=== PATIENT | female | born 1965 | race Caucasian/White ===

== ENCOUNTER 2021-03-06 19:54 | Emergency (ER) | payer SELFPAY ==
[2021-03-06 19:55] VITALS: BP 156/90; PULSE 84; RESP 16; TEMP 36.9; O2SAT 98; BMI 33.3
--- NOTE | 2021-03-06 19:57 | XRR_ITS ---
PROCEDURE INFORMATION: Exam: XR Chest Exam date and time: 03/06/2021 7:57 PM Age: 55 years old Clinical indication: Dyspnea; Additional info: SOB TECHNIQUE: Imaging protocol: XR of the chest. Views: 1 view. Total images: 1 COMPARISON: 1. CR Chest 1 [place] [id number] 10/03/2016 9:04:[address] chest w con* [id number] 10/03/2016 10:32 PM FINDINGS: Lungs: No visible active interstitial or alveolar airspace disease. Pleural spaces: Unremarkable. No pleural effusion. No pneumothorax. Heart/Mediastinum: Unremarkable. No cardiomegaly. Bones/joints: Unremarkable. Other findings: Obesity. XR/XR chest 1V portable [id number] IMPRESSION: Nonacute.
[2021-03-06] MEDS: sodium chloride 0.9% 1,000 ML 999 ML IV ×2 (20:37→21:44)
[2021-03-06] MEDS: ondansetron 2 mg/ML SDV 2 mL 4 MG IVP (20:37)
[2021-03-06 20:49] VITALS: BP 119/83; PULSE 90; RESP 16; O2SAT 99
--- NOTE | 2021-03-06 20:52 | ED_ITS ---
HPI - Weakness General: Chief complaint: Weakness Stated complaint: OVERHEATED Time Seen by Provider: 03/06/21 19:55 Source: patient Mode of arrival: ambulatory Limitations: no limitations History of Present Illness: HPI Narrative: 55-year-old female states that prior to arrival she was had a jehovah's witness function that was outside roughly an hour ago. States she was feeling extremely weak and felt like she got overheated. States she went to her house and laid down and has been extremely weak since then. States having difficulty walking due to her extreme weakness. Denies any headache or chest pain. She did not pass out. She denies any worsening improving factors. She denies any one-sided weakness or vision changes. Associated symptoms: Denies chest pain, chills, dysuria, easy bruising, fever(s), nausea or vomiting Review of Systems Const: Denies: fever(s), chills, body aches or change in appetite Eyes: Denies: blurry vision or eye discomfort ENMT: Denies: throat pain or dental pain Card: Denies: chest pain Resp: Denies: dyspnea GI: Denies: abdominal pain, nausea, vomiting or diarrhea : Denies: dysuria Musc: Denies: neck pain or back pain Skin/Breast: Denies: rash Neuro: Reports: weakness in extremities Psych: Denies: depression Pantera/Lymph: Denies: easy bruising All/Imm: Denies: urticaria Physical Exam Const: COMMON NORMALS: no acute distress, patient oriented x3 and healthy appearing HENMT: COMMON NORMALS: normocephalic and atraumatic HEAD & SCALP: normocephalic and atraumatic Eye: COMMON NORMALS: Equal, round and reactive pupils present and EOMs intact bilaterally PUPIL: Yes Equal, round and reactive pupils present Neck/C-Spine: COMMON NORMALS: full ROM and supple Chest: COMMONS NORMALS: normal inspection of the chest and normal palpation of entire chest wall Resp: COMMON NORMALS: normal respiratory effort, No retractions, No use of accessory muscles and clear to auscultation bilaterally AUSCULTATION: clear to auscultation bilaterally Cardio: COMMON NORMALS: regular rate, regular rhythm and No murmurs present (Cardio) RATE: regular rate RHYTHM: regular rhythm GI: COMMON NORMALS: Normal to inspection, nondistended, normoactive bowel sounds present, Soft to palpation, non-tender and no masses PALPATION: Yes Soft to palpation Extremity: COMMON NORMALS: normal to inspection and full ROM Neuro: COMMON NORMALS: patient oriented x3, moves all extremities and no focal motor deficits Psych: COMMON NORMALS: mental status grossly normal, Normal thought process present and cooperative THOUGHT PROCESS: Normal thought process present Skin: COMMON NORMALS: no rashes or lesions noted and no wounds GENERAL SKIN EXAM: no rashes or lesions noted Course Vital Signs: Vital signs: Vital Signs Temperature 98.4 F 03/06/21 19:55 Pulse Rate 86 03/06/21 22:36 Respiratory Rate 16 03/06/21 22:36 Blood Pressure 130/87 03/06/21 22:36 Pulse Oximetry 95 03/06/21 22:36 MDM - Weakness MDM Narrative: Medical decision making narrative: Patient presents with weakness likely from heat exhaustion. After 2 L here she feels much improved and is ambulating in the halls. She has no signs of stroke and her blood work is normal. Will prescribe her Zofran and she is to drink plenty of fluids at home and avoid the heat. She is to follow-up with her PCP and return if worsening. Lab Data: Labs: Lab Results 03/06/21 03/06/21 03/06/21 Range/Units 20:34 20:34 20:34 WBC 7.1 (4.0-10.0) 10^3/ uL RBC 4.64 (4.1-5.3) 10^6/u L Hgb 13.2 (11.5-15.3) g/dL Hct 41.0 (37.0-47.0) % MCV 88.4 (81-99) fL MCH 28.4 (28.0-34.0) pg MCHC 32.2 (30.0-36.0) g/dL RDW 12.1 (12.1-15.1) % Plt Count 226 (130-400) 10^3/c mm MPV 11.6 H (7.4-10.4) fL Neut % (Auto) 69.4 % Lymph % (Auto) 20.3 % Woodson % (Auto) 8.7 % Eos % (Auto) 0.7 % Baso % (Auto) 0.3 % Neut # (Auto) 4.95 (1.8-7.7) 10^3/u L Lymph # (Auto) 1.5 (0.8-4.8) 10^3/u L Woodson # (Auto) 0.6 (0.2-0.9) 10^3/u L Eos # (Auto) 0.1 (0.0-0.8) 10^3/u L Baso # (Auto) 0.0 (0.0-0.1) 10^3/u L Nucleated RBC % (a uto) 0 % Nucleated RBCs # 0.0 /100WBC Sodium 138 (136-145) mmol/L Potassium 4.2 (3.5-5.1) mmol/L Chloride 102 (98-107) mmol/L Carbon Dioxide 26 (22-29) mmol/L Anion Gap 14.2 (5-19) BUN 13 (6-20) mg/dL Creatinine 0.8 (0.5-0.9) mg/dL GFR Calculation 74.5 L (90-130) mL/min Glucose 100 (65-115) mg/dL Calculated Osmolal ity 286 (285-295) mOsm/k g Calcium 9.2 (8.5-10.5) mg/dL Total Bilirubin 0.3 (0.15-1.2) mg/dL AST 19 (0-32) U/L ALT 13 (0-33) U/L Alkaline Phosphata se 60 (35-105) IU/L Creatine Kinase 117 (26-192) U/L Troponin T Baselin e 6 (0-10) ng/L Total Protein 6.7 (6.6-8.7) g/dL Albumin 4.4 (3.5-5.2) g/dL Globulin 2.3 (1.3-4.6) g/dL EKG Data^: EKG 1: Attestation: I personally reviewed and interpreted this EKG as follows: EKG interpretation date: 03/06/21 EKG interpretation time: 20:44 Interpretation: nsr hr [address] or t wave abnormalities qrs 94 qtc 441 Discharge Plan Discharge Patient Disposition: Home Clinical Impression: Heat exposure Qualifiers: Encounter type: initial encounter Qualified Code(s): T67.9XXA - Effect of heat and light, unspecified, initial encounter Condition: Stable Prescriptions: New ondansetron 4 mg tablet,disintegrating 4 mg PO Q6H PRN (Reason: nausea and vomiting) Qty: 14 RF: 0 Discharge Orders: Discharge ED (Routine); Ordered 03/06/21 Ordered By: Eliceo Wooten Referrals: Fady Alfaro DO [Primary Care Provider] - 1-3 days Discharge Diet: Advance as tolerated Discharge Activity: Resume usual activity Patient Instructions: Heat Exhaustion (ED) Coding Level of Care Code ED Seating And Mobility Technologist for Chg Fwd Exam Comprehensive
[2021-03-06 21:03] LABS: Basophils % 0.3 %; Eosinophils # 0.1 10^3/uL (0.0-0.8); Eosinophils % 0.7 %; Hemoglobin 13.2 g/dL (11.5-15.3); Lymphocytes # 1.5 10^3/uL (0.8-4.8); Lymphocytes % 20.3 %; Mean Corpuscular HGB Conc 32.2 g/dL (30.0-36.0); Mean Corpuscular Hemoglobin 28.4 pg (28.0-34.0); Mean Corpuscular Volume 88.4 fL (81-99); Mean Platelet Volume 11.6 fL (7.4-10.4); Monocytes # 0.6 10^3/uL (0.2-0.9); Monocytes % 8.7 %; Neutrophils # 4.95 10^3/uL (1.8-7.7); Neutrophils % 69.4 %; Nucleated Red Blood Cells % 0 %; Platelet Count 226 10^3/cmm (130-400); Red Blood Count 4.64 10^6/uL (4.1-5.3); Red Cell Distribution Width 12.1 % (12.1-15.1); White Blood Count 7.1 10^3/uL (4.0-10.0)
[2021-03-06 21:24] LABS: Alanine Aminotransferase 13 U/L (0-33); Albumin Level 4.4 g/dL (3.5-5.2); Alkaline Phosphatase 60 IU/L (35-105); Anion Gap 14.2 (5-19); Aspartate Amino Transferase 19 U/L (0-32); Blood Urea Nitrogen 13 mg/dL (6-20); Calcium 9.2 mg/dL (8.5-10.5); Carbon Dioxide 26 mmol/L (22-29); Chloride 102 mmol/L (98-107); Creatine Phosphokinase 117 U/L (26-192); Globulin 2.3 g/dL (1.3-4.6); Glomerular Filtration Rate 74.5 mL/min (90-130); Glucose 100 mg/dL (65-115); Osmolality Calculated 286 mOsm/kg (285-295); Potassium 4.2 mmol/L (3.5-5.1); Sodium 138 mmol/L (136-145); Total Bilirubin 0.3 mg/dL (0.15-1.2); Total Protein 6.7 g/dL (6.6-8.7)
[2021-03-06 21:25] LABS: Troponin(5th) Baseline 6 ng/L (0-10)
--- NOTE | 2021-03-06 21:58 | ECG_ITS ---
[facility] Test Date: 2021-03-06 Pat Name: Karla Brooks Department: Room: Gender: Female [employer]: : 1965 Requested By: Eliceo Wooten Order Number: [id number] Elzbieta MD: Andra Kang M.D. Measurements Intervals [place] Rate: 79 P: 25 [place]: 196 QRS: -4 QRSD: 94 T: 12 QT: 406 QTc: 467 Interpretive Statements SINUS RHYTHM LOW QRS VOLTAGE IN PRECORDIAL LEADS [QRS DEFLECTION < 1.0 mV IN CHEST LEADS] POSSIBLE ANTERIOR MYOCARDIAL INFARCTION [30 ms Q WAVE IN V3/V4, OR R < 0.2 mV IN V4], PROBABLY OLD Compared to ECG 10/04/2016 05:36:20 Myocardial infarct finding now present Electronically Signed On 03-07-2021 18:38:22 CDT by Andra Kang M.D. [email or web address]
[2021-03-06 22:36] VITALS: BP 130/87; PULSE 86; RESP 16; O2SAT 95
== END 2021-03-06 22:37 | disposition home or self-care (01) ==
PROVIDERS: Emergency Provider Emergency Medicine; PCP Internal Medicine
DX: T67.9XXA Effect of heat and light, unspecified, initial encounter (principal)
CPT/HCPCS: 71045; 80053; 82550; 84484; 85025; 93005; 96361; 96374; 99284; J2405; J7030

== ENCOUNTER → 2025-03-04 07:52 | Outpatient (BNVA) | payer SELFPAY | PROVIDERS: PCP Electrodiagnostic Medicine; Visit Provider Podiatrist Foot & Ankle Surgery | DX: B07.0 Plantar wart (principal) | CPT/HCPCS: 73630 ==